=== PATIENT | female | born 1970 | race Caucasian/White ===

== ENCOUNTER 2018-03-30 20:00 | Emergency (ER) | payer OTHER ==
[2018-03-30 20:11] VITALS: BP 122/69; PULSE 77; TEMP 98.3; BMI 42.5
--- NOTE | 2018-03-30 20:12 | PDOC ---
Rapid Medical Evaluation Time Seen by Provider: 03/30/18 20:08 Medical Evaluation: 03/30/18 20:08 Pt c/o: left sided chest pain, radiating to left arm, aching left bicep, no fever, no sob Pt on brief exam: no edema to left arm, no disoloration pt ordered for: ekg, labs pt to proceed to the ED Discharge Disposition - Diagnosis Chest pain - Referrals - Patient Instructions - Post Discharge Activity
[2018-03-30 20:43] LABS: BASO % 0.9 % (0-2.0); EOS % 2.4 % (0-4.5); HEMATOCRIT 40.3 % (32.4-45.2); HEMOGLOBIN 13.7 GM/dL (10.7-15.3); LYMPH % 25.7 % (8-40); MCH 27.7 pg (25.7-33.7); MEAN CELL VOLUME 81.3 fl (80-96); MEAN PLT VOLUME 7.6 fl (7.5-11.1); MONO % 5.7 % (3.8-10.2); NEUT % 65.3 % (42.8-82.8); PLATELET COUNT 254 K/MM3 (134-434); RBC 4.95 M/mm3 (3.60-5.2); RDW 15.2 % (11.6-15.6); WHITE BLOOD COUNT 7.3 K/mm3 (4.0-10.0)
[2018-03-30 21:30] LABS: ALBUMIN 3.7 g/dl (3.4-5.0); ALK PHOS 105 U/L (45-117); ANION GAP 10 MMOL/L (8-16); BILIRUBIN,TOTAL 0.3 mg/dL (0.2-1); BLOOD UREA NITROGEN 21 mg/dL (7-18); CALCIUM 9.1 mg/dL (8.5-10.1); CHLORIDE 106 mmol/L (98-107); CO2 23 mmol/L (21-32); CREATININE 0.9 mg/dL (0.55-1.3); GLUCOSE,RANDOM 85 mg/dL (74-106); SGPT/ALT 20 U/L (13-61); SODIUM 139 mmol/L (136-145); TOT PROT 7.2 g/dl (6.4-8.2)
[2018-03-30 21:35] LABS: SGOT/AST 17 U/L (15-37)
--- NOTE | 2018-03-30 21:57 | PDOC ---
History of Present Illness - General Chief Complaint: Chest Pain Stated Complaint: LEFT SIDE PAIN Time Seen by Provider: 03/30/18 20:08 - History of Present Illness Initial Comments: 03/30/18 22:12 The patient is a 47 year old female with a history of bipolar who presents for evaluation of chest pain. The patient reports that she has been experiencing a several day history of worsening left sided chest pain with radiation to her left arm worse with movements and associated with SOB prompting her presentation to the ED for further evaluation. She notes that she has also been experiencing some right calf swelling and pain over the past 1 week. She otherwise denies fevers, chills, nausea, vomiting, abdominal pain, or changes with urination or bowel movements. She denies recent long travel, OCP use, or history of DVT or PE. Past History - Past Medical History Allergies/Adverse Reactions: Allergies Allergy/AdvReac Type Severity Reaction Status Date / Time ciprofloxacin [From Cipro] Allergy Verified 03/30/18 20:11 COPD: No Psychiatric Problems: Yes (bipolar, schizphernia) - Suicide/Smoking/Psychosocial Hx Smoking History: Never smoked Review of Systems - Review of Systems Comments:: 03/30/18 22:15 Constitutional: No fevers, chills, fatigue, malaise HEENT: No Rhinorrhea, nasal congestion, visual changes Cardiovascular: Chest pain. No syncope, palpitations, lightheadedness Respiratory: SOB. No Cough, Hemoptysis, Gastrointestinal: No Abdominal pain, Nausea, Vomiting, Constipation, Diarrhea, Melena Genitourinary: No Dysuria, Frequency, Urgency, Hesitancy, Hematuria, Flank pain Musculoskeletal: Right calf swelling and pain. No Myalgia, arthralgia Skin: No rashes, itching, bruising, pallor Neurologic: No Headache, Dizziness, Numbness, Weakness, or Tingling Psychiatric: No Hallucinations. No SI or HI *Physical Exam - Vital Signs Last Vital Signs Temp Pulse Resp BP Pulse Ox 98.3 F 77 18 122/69 99 03/30/18 20:05 03/30/18 20:05 03/30/18 20:05 03/30/18 20:05 03/30/18 20:05 - Physical Exam Comments: 03/30/18 22:16 General Appearance: Nourished. No Apparent Distress HEENT: No Pharyngeal Erythema, Tonsillar Exudate, Tonsillar Erythema Neck: No Cervical Lymphadenopathy Respiratory/Chest: Lungs Clear, Normal Breath Sounds. Reproducible tenderness to palpation along the left sternal border. No Crackles, Rales, Rhonchi, Wheezing Cardiovascular: Regular Rhythm, Regular Rate. No Murmur, Gallops, Rubs Gastrointestinal/Abdominal: Normal Bowel Sounds, Soft. No Guarding, Rebound, Tenderness Musculoskeletal: No CVA Tenderness Extremity: Normal Capillary Refill Integumentary: Normal Color, Dry, Warm Neurologic: Fully Oriented, Alert, Normal Mood/Affect, Normal Response, Heart Score/ECG Review #1 ECG reviewed & interpreted by me at: 22:18 General ECG Interpretation: Sinus Rhythm, Normal Rate, Normal Intervals, No acute ischemic changes ED Treatment Course - LABORATORY CBC & Chemistry Diagram: 03/30/18 20:34 03/30/18 20:34 - ADDITIONAL ORDERS Additional order review: Laboratory Results 03/30/18 03/30/18 20:34 20:34 D-Dimer 772 H Sodium 139 Potassium 4.0 Chloride 106 Carbon Dioxide 23 Anion Gap 10 BUN 21 H Creatinine 0.9 Creat Clearance w eGFR > 60 Random Glucose 85 Calcium 9.1 Total Bilirubin 0.3 AST 17 ALT 20 Alkaline Phosphatase 105 Creatine Kinase 97 Troponin I < 0.02 Total Protein 7.2 Albumin 3.7 03/30/18 20:34 RBC 4.95 MCV 81.3 MCHC 34.0 RDW 15.2 MPV 7.6 Neutrophils % 65.3 Lymphocytes % 25.7 Monocytes % 5.7 Eosinophils % 2.4 Basophils % 0.9 Medical Decision Making - Medical Decision Making 03/30/18 22:18 The patient is a 47 year old female with a history of bipolar who presents for evaluation of chest pain. Differential includes but is not limited to: PE, DVT , ACS, Musculoskeletal, Infectious, Metabolic Derangement. Given the patient's history and physical exam, it is likely her symptoms are musculoskeletal in nature. CBC, cmp, troponin obtained in triage were unremarkable. D-dimer was elevated. We will obtain a chest CTA and duplex of the right leg and left arm to evaluate further. We will obtain a second troponin as well. We will continue to monitor and reassess while here in the ED. 03/30/18 23:39 CTA was unremarkable as read by our radiologist. Duplexs of the right leg and left arm were unremarkable as read by our radiologist. Second troponin is unremarkable. The patient continues to appear clinically well on exam. We are comfortable discharging the patient home with neurology and cardiology follow up. We discussed the results, plan, and return precautions with the patient who voiced understanding and is agreeable with the plan. *DC/Admit/Observation/Transfer Diagnosis at time of Disposition: Chest pain Qualifiers: Chest pain type: unspecified Qualified Code(s): R07.9 - Chest pain, unspecified - Discharge Dispostion Disposition: HOME Condition at time of disposition: Stable - Referrals Referrals: Isaiah Sarmiento MD [Staff Physician] - ON STAFF,NOT [Primary Care Provider] - Luiz Bass MD [Staff Physician] - - Patient Instructions Printed Discharge Instructions: DI for Atypical Chest Pain Additional Instructions: Please return to the ER if you experience concerning or worsening symptoms including worsening difficulty breathing, weakness, or chest pain. Your lab results were normal here in the ER. Your CT scans and Ultrasound were normal. Please call to schedule a follow up appointment with your primary care provider and our steel chipper and neurologist within 2-3 days to discuss your ER visit and further management of your symptoms. - Post Discharge Activity
--- NOTE | 2018-03-30 22:11 | PDOC ---
Attending Attestation - HPI HPI: 03/30/18 23:44 The patient is a 47 year old female, with a significant past medical history of sciatica, hypertension, obesity, obstructive sleep apnea, bipolar disorder, who presents to the emergency department with, 1 month left shoulder pain and right calf pain. As per patient, the pain has been intermittent in nature for the past month and worsening with movement. Patient endorses increasing shortness of breath secondary to her pain and a 80lb weight gain over the past year. She saw her PCP a week ago for her symptoms who advised outpatient ultrasound. She denies recent fevers, chills, headache or dizziness. She denies recent nausea, vomit, diarrhea or constipation. She denies recent dysuria, frequency, urgency or hematuria. Allergies: Ciprofloxacin. - Physicial Exam PE: 03/30/18 23:44 +GENERAL: Obese. Awake, alert, and fully oriented, in no acute distress HEAD: No signs of trauma LUNGS: Breath sounds equal, clear to auscultation bilaterally. No wheezes, and no crackles HEART: Regular rate and rhythm, normal S1 and S2, no murmurs, rubs or gallops ABDOMEN: Soft, nontender, normoactive bowel sounds. No guarding, no rebound. No masses +EXTREMITIES: Tenderness to the right calf and left shoulder which is reproducible with movement. NEUROLOGICAL: Cranial nerves II through XII grossly intact. Normal speech SKIN: Warm, Dry, normal turgor, no rashes or lesions noted. <Joshua Chatman - Last Filed: 03/30/18 23:44> - Resident Resident Name: Christo Hood - ED Attending Attestation I have performed the following: I have examined & evaluated the patient, The case was reviewed & discussed with the resident, I agree w/resident's findings & plan, Exceptions are as noted - Medical Decision Making 03/30/18 23:15 A portion of this note was documented by scribe services under my direction. I have reviewed the details of the note, within reason, and agree with the documentation with the following case summary and management plan written by me. Patient treated in the ED. Nursing notes are reviewed and incorporated into the medical decision-making. Vital signs reviewed. Peripheral IV access obtained by the nurse, laboratory studies are drawn and sent, reviewed and interpreted by myself. Vital Signs Temp Pulse Resp BP Pulse Ox 98.3 F 77 18 122/69 99 03/30/18 20:05 03/30/18 20:05 03/30/18 20:05 03/30/18 20:05 03/30/18 20:05 47-year-old female patient with history of sciatica, hypertension, obesity, obstructive sleep apnea, bipolar disorder presents with multiple complaints. The patient has reported over the last month that she's been developing intermittent right calf pain and left shoulder pain. States that the pain is worse with palpation and movement. She is also reported that she's been having some increasing short of breath from the pain. Denies midsternal chest pressure. Denies exertional chest pain or shortness of breath. Stated that she saw her primary care physician week ago was suggested that the symptoms are persistent that they can pursue an outpatient ultrasound. Denies fevers or chills. Patient reports that the pain is reproducible. The patient has atypical chest pain and less likely to be acute coronary syndrome. We'll rule out pulmonary embolism. However, I suspect the patient left upper extremities and right lower extremities secondary to muscle skeletal. There may be also components of radiculopathy as well. We will perform duplex of the right lower extremities and left upper extremity as well as obtain a CT of the chest. If the workup is negative and the two troponins are negative, the patient to be discharged with outpatient follow-up. 03/31/18 00:43 CBC, BMP 03/30/18 20:34 03/30/18 20:34 CMP Sodium 139 mmol/L (136-145) 03/30/18 20:34 Potassium 4.0 mmol/L (3.5-5.1) 03/30/18 20:34 Chloride 106 mmol/L (98-107) 03/30/18 20:34 Carbon Dioxide 23 mmol/L (21-32) 03/30/18 20:34 Anion Gap 10 MMOL/L (8-16) 03/30/18 20:34 BUN 21 mg/dL (7-18) H 03/30/18 20:34 Creatinine 0.9 mg/dL (0.55-1.3) 03/30/18 20:34 Creat Clearance w eGFR > 60 (>60) 03/30/18 20:34 Random Glucose 85 mg/dL (74-106) 03/30/18 20:34 Calcium 9.1 mg/dL (8.5-10.1) 03/30/18 20:34 Total Bilirubin 0.3 mg/dL (0.2-1) 03/30/18 20:34 AST 17 U/L (15-37) 03/30/18 20:34 ALT 20 U/L (13-61) 03/30/18 20:34 Alkaline Phosphatase 105 U/L (45-117) 03/30/18 20:34 Creatine Kinase 72 IU/L (26-192) 03/30/18 23:30 Troponin I < 0.02 ng/ml (0.00-0.05) 03/30/18 23:30 Total Protein 7.2 g/dl (6.4-8.2) 03/30/18 20:34 Albumin 3.7 g/dl (3.4-5.0) 03/30/18 20:34 Serum , Qual Negative 03/30/18 20:34 Two troponin negative. 03/31/18 01:36 Duplex negative. 03/31/18 01:42 CTA shows no PE or pneumonia. However, does have right thyroid nodule and left nodule. Will give her a copy of the CT and advise her to follow up with her PMD for outpatient ultrasound. <Eric Kim - Last Filed: 03/31/18 01:43> Heart Score/ECG Review #1 ECG reviewed & interpreted by me at: 20:40 03/30/18 22:11 NSR 78, no std/asael, normal axis, normal intervals, QTC 437 msec <Eric Kim - Last Filed: 03/31/18 01:43> Attestations - Attestations 03/30/18 23:49 Documentation prepared by Joshua Chatman, acting as biomedical equipment technician for Eric Kim MD. <Joshua Chatman - Last Filed: 03/30/18 23:44>
[2018-03-31] MEDS ORDERED: KETOROLAC TROMETHAMINE 30 MG/1 ML VIAL IVPUSH ONE (00:04)
[2018-03-31] MEDS ORDERED: KETOROLAC TROMETHAMINE 30 MG/1 ML VIAL ONE (00:10)
[2018-03-31] MEDS ORDERED: SODIUM CHLORIDE 1,000 ML IV STA (00:40)
--- NOTE | 2018-03-31 12:33 | EKG ---
Test Reason : Blood Pressure : / mmHG Vent. Rate : 078 BPM Atrial Rate : 078 BPM P-R Int : 152 ms QRS Dur : 078 ms QT Int : 384 ms P-R-T Axes : 068 066 055 degrees QTc Int : 437 ms NORMAL SINUS RHYTHM NORMAL ECG Confirmed by MD TOMAS, MARITA ([id number]) on 03/31/2018 12:33:01 PM Referred By: Confirmed By:MARITA MARIN MD
== END 2018-03-31 02:06 | disposition home or self-care (01) ==
LOC: JER 20:00
PROC: 3E0337Z Introduction of Electrolytic and Water Balance Substance into Peripheral Vein, Percutaneous Approach (ICD-10-PCS; principal; 2018-03-30)
PROC: 3E0333Z Introduction of Anti-inflammatory into Peripheral Vein, Percutaneous Approach (ICD-10-PCS; 2018-03-30)
DX: R07.9 Chest pain, unspecified (principal)
CPT/HCPCS: 36415; 71045-TC-FY; 71275-TC; 80053; 82550; 84484; 84703; 85025; 85379; 93005; 93010; 93971; 93971-TC; 96361; 96374; 99282-25; 99285-25; J7030

== ENCOUNTER 2018-09-22 08:55 | Emergency (ER) | payer OTHER ==
[2018-09-22 09:05] VITALS: BP 111/68; PULSE 74; TEMP 98.6; BMI 38.3
[2018-09-22] MEDS ORDERED: diazePAM 2 MG TABLET PO ONE (09:29)
[2018-09-22] MEDS ORDERED: KETOROLAC TROMETHAMINE 30 MG/1 ML VIAL IM ONE (09:29)
--- NOTE | 2018-09-22 09:33 | PDOC ---
History of Present Illness - General Chief Complaint: Back Pain Stated Complaint: LOWER BACK PAIN/ RT. KNEE PAIN Time Seen by Provider: 09/22/18 09:19 History Source: Patient Exam Limitations: No Limitations - History of Present Illness Initial Comments: 09/22/18 09:33 47 year old female with history or HTN, prediabetes, and bipolar presents with lower back pain after fall. Patient reports tripping on uneven sidewalk and falling onto buttocks. STates pain in lower back, sacral area that radiates to right and left thigh. Also reports right knee feeling swollen but no pain. Denies head strike, loc or numbness or tingling in distal limbs. Occurred: reports: just prior to arrival Severity: reports: moderate Pain Location: reports: back, pelvis Method of Injury: Yes: fall Modifying Factors: improves with: immobilization Loss of Consciousness: no loss of consciousness Associated Symptoms (Fall): trouble walking Past History - Travel Traveled outside of the country in the last 30 days: No Close contact w/someone who was outside of country & ill: No - Past Medical History Allergies/Adverse Reactions: Allergies Allergy/AdvReac Type Severity Reaction Status Date / Time ciprofloxacin [From Cipro] Allergy Verified 09/22/18 09:00 Home Medications: Ambulatory Orders Cyclobenzaprine HCl [Flexeril -] 10 mg PO HS #3 tablet 09/22/18 Ibuprofen 600 mg PO TID #20 tablet 09/22/18 COPD: No Diabetes: Yes (pre diabetis) Psychiatric Problems: Yes (bipolar, schizphernia) Other medical history: thyroid - Suicide/Smoking/Psychosocial Hx Smoking History: Never smoked Information on smoking cessation initiated: No Hx Alcohol Use: No Drug/Substance Use Hx: No Trauma Specific PMHX - Complaint Specific PMHX Arthritis: No Back Injury: No Neck Injury: No Hx Sacro Iliac Joint Dysfunction: No Review of Systems - Review of Systems Able to Perform ROS?: Yes Is the patient limited Syriac proficient: No Constitutional: No: Chills, Fever, Weakness HEENTM: No: Eye Pain, Nose Congestion Respiratory: No: Cough, Orthopnea, Shortness of Breath, Wheezing Cardiac (ROS): No: Lightheadedness ABD/GI: No: Nausea Musculoskeletal: Yes: Back Pain, Joint Swelling, Joint Stiffness Neurological: No: Numbness, Paresthesia *Physical Exam - Vital Signs Last Vital Signs Temp Pulse Resp BP Pulse Ox 98.6 F 74 17 111/68 99 09/22/18 08:57 09/22/18 08:57 09/22/18 08:57 09/22/18 08:57 09/22/18 08:57 - Physical Exam General Appearance: Yes: Nourished, Appropriately Dressed. No: Apparent Distress Neck: positive: Supple. negative: Tender, Lymphadenopathy (R), Lymphadenopathy (L) Respiratory/Chest: positive: Lungs Clear Cardiovascular: positive: Regular Rhythm, Regular Rate Musculoskeletal: positive: Normal Inspection, Other (tenderness with palpation in lumbar region). negative: CVA Tenderness Extremity: positive: Normal Capillary Refill, Other (+pain with ROM of bilateral legs at hips) Integumentary: positive: Normal Color Neurologic: positive: Fully Oriented, Alert Medical Decision Making - Medical Decision Making 09/22/18 09:36 47 year old female with history or HTN, prediabetes, and bipolar presents with lower back pain after fall Back injury -xray of lumbar sacral, and hips -analgesia 09/22/18 12:[address] Ascencion garland with no acute fracture noted in hip d/c home f/u with ortho rx: analgesia *DC/Admit/Observation/Transfer Diagnosis at time of Disposition: Fall Qualifiers: Encounter type: initial encounter Qualified Code(s): W19.XXXA - Unspecified fall, initial encounter Lower back pain Qualifiers: Chronicity: acute Back pain laterality: bilateral Sciatica presence: with sciatica Sciatica laterality: sciatica laterality unspecified Qualified Code(s) : M54.40 - Lumbago with sciatica, unspecified side - Discharge Dispostion Disposition: HOME Condition at time of disposition: Good Decision to Admit order: No - Prescriptions Prescriptions: Cyclobenzaprine HCl [Flexeril -] 10 mg PO HS #3 tablet Ibuprofen 600 mg PO TID #20 tablet - Referrals Referrals: Aurelio Hernandez MD [Staff Physician] - Call tomorrow - Patient Instructions Printed Discharge Instructions: DI for Low Back Pain Additional Instructions: May apply warm compress to area for 20 minutes 3 to 4 times daily Activity as tolerated Do not remain in bed for more than 72 hours Call ortho for follow up appointment - Post Discharge Activity Forms/Work/School Notes: Back to Work
[2018-09-22] MEDS ORDERED: diazePAM 2 MG TABLET ONE (09:46)
[2018-09-22] MEDS ORDERED: KETOROLAC TROMETHAMINE 30 MG/1 ML VIAL ONE (09:47)
== END 2018-09-22 12:44 | disposition home or self-care (01) ==
LOC: JERFT 08:55
PROC: 3E0233Z Introduction of Anti-inflammatory into Muscle, Percutaneous Approach (ICD-10-PCS; principal; 2018-09-22)
DX: M54.40 Lumbago with sciatica, unspecified side (principal); W18.39XA Other fall on same level, initial encounter; Z91.81 History of falling; Y93.89 Activity, other specified; Y92.480 Sidewalk as the place of occurrence of the external cause; Y99.8 Other external cause status
CPT/HCPCS: 72100-TC-FY; 73523-TC-FY; 96372; 99281-25

== ENCOUNTER 2019-03-31 11:18 | Emergency (ER) | payer OTHER ==
[2019-03-31 11:24] VITALS: BP 119/61; PULSE 63; TEMP 98.4; BMI 37.8
--- NOTE | 2019-03-31 11:37 | PDOC ---
History of Present Illness - General Chief Complaint: Cold Symptoms Stated Complaint: Cold Symptoms Time Seen by Provider: 03/31/19 11:24 History Source: Patient - History of Present Illness Timing/Duration: reports: yesterday Past History - Past Medical History Allergies/Adverse Reactions: Allergies Allergy/AdvReac Type Severity Reaction Status Date / Time ciprofloxacin [From Cipro] Allergy Verified 09/22/18 09:00 Home Medications: Ambulatory Orders Cyclobenzaprine HCl [Flexeril -] 10 mg PO HS #3 tablet 09/22/18 Ibuprofen 600 mg PO TID #20 tablet 09/22/18 COPD: No Diabetes: Yes (pre diabetis) Psychiatric Problems: Yes (bipolar, schizphernia) - Psycho Social/Smoking Cessation Hx Smoking History: Never smoked Information on smoking cessation initiated: No Hx Alcohol Use: No Drug/Substance Use Hx: No Review of Systems - Review of Systems Constitutional: No: Chills, Fever HEENTM: Yes: Throat Pain. No: Ear Pain Respiratory: No: Cough, Shortness of Breath, Wheezing *Physical Exam - Vital Signs Last Vital Signs Temp Pulse Resp BP Pulse Ox 98.4 F 63 19 119/61 98 03/31/19 11:22 03/31/19 11:22 03/31/19 11:22 03/31/19 11:22 03/31/19 11:22 - Physical Exam General Appearance: Yes: Appropriately Dressed. No: Apparent Distress HEENT: positive: Normal ENT Inspection, Normal Voice, TMs Normal, Pharynx Normal. negative: Scleral Icterus (R), Scleral Icterus (L), Muffled/Hoarse voice Neck: positive: Supple. negative: Lymphadenopathy (R), Lymphadenopathy (L) Respiratory/Chest: positive: Lungs Clear, Normal Breath Sounds. negative: Respiratory Distress Cardiovascular: positive: Regular Rate, S1, S2 Integumentary: positive: Dry, Warm Neurologic: positive: Fully Oriented, Alert, Normal Mood/Affect Medical Decision Making - Medical Decision Making 03/31/19 11:38 48-year-old female, no significant history here with sore throat x2 days. No fever or chills. Son with similar symptoms. Pt well-appearing and stable with unremarkable exam. Most likely viral. DC with supportive treatment Discharge - Discharge Information Problems reviewed: Yes Clinical Impression/Diagnosis: URI (upper respiratory infection) Qualifiers: URI type: unspecified viral URI Qualified Code(s): J06.9 - Acute upper respiratory infection, unspecified Condition: Good Disposition: HOME - Follow up/Referral - Patient Discharge Instructions Patient Printed Discharge Instructions: DI for Viral Upper Respiratory Infection -- Adult - Post Discharge Activity
== END 2019-03-31 11:46 | disposition home or self-care (01) ==
LOC: JERFT 11:18
DX: F20.9 Schizophrenia, unspecified (principal); F31.9 Bipolar disorder, unspecified; R73.03 Prediabetes; Z88.8 Allergy status to other drugs, medicaments and biological substances
CPT/HCPCS: 99281-25